=== PATIENT | female | born 1970 | race Caucasian/White ===

== ENCOUNTER 2022-07-07 23:49 | Emergency (ER) | payer SELFPAY ==
[~2022-07-07] VITALS: Ht 154.9 cm; Wt 95.9 kg
[~2022-07-07 23:49] MED LIST: BENADRYL PO
[2022-07-08 00:09] VITALS: BP 127/85
--- NOTE | 2022-07-08 00:13 | NUR ---
PT TO LOBBY
--- NOTE | 2022-07-08 02:30 | NUR ---
SEEN AND EXAMINED BY [facility]
[2022-07-08] MEDS ORDERED: TETRACAINE HCL/PF 0.5% OPTH 4 ML BTL OP ONE (02:50)
[2022-07-08] MEDS ORDERED: FLUORESCEIN OPTH STRIP 1 MG OP ONE (02:50)
[2022-07-08] MEDS ORDERED: TOMOMETER 1 DEV DEV MC ONE (03:14)
[2022-07-08] MEDS ORDERED: KETOROLAC 15 MG/ML VIAL IM ONE (03:25)
[2022-07-08 03:30] VITALS: BP 118/80
--- NOTE | 2022-07-08 03:30 | NUR ---
Patient discharged with v/s stable. Written and verbal after care instructions given and explained. Patient alert, oriented and verbalized understanding of instructions. Ambulatory with steady gait. All questions addressed prior to discharge. ID band removed. Patient advised to follow up with PMD. Rx of CYCLOGYL, PREDNISOLONE given. Patient educated on indication of medication including possible reaction and side effects. Opportunity to ask questions provided and answered.
[2022-07-08] MEDS ORDERED: PRED5DRO RIGHT EYE (03:34)
[2022-07-08] MEDS ORDERED: CYC1OS RIGHT EYE (03:34)
[2022-07-08] MEDS ORDERED: IBUP-2213 PO (03:37)
== END 2022-07-08 03:30 | disposition home or self-care (01) ==
LOC: MED 23:49
DX: H20.9 Unspecified iridocyclitis (principal); Z79.899 Other long term (current) drug therapy
CPT/HCPCS: 96372; 99283; J1885